=== PATIENT | male | born 1995 | race Caucasian/White ===

== ENCOUNTER 2016-06-09 17:54 | Emergency (ER) | payer SELFPAY ==
[~2016-06-09] VITALS: Ht 172.7 cm; Wt 95.5 kg
[2016-06-09 18:03] VITALS: TEMP 97.5
[2016-06-09 20:04] VITALS: BP 145/87; PULSE 80
== END 2016-06-09 20:06 | disposition home or self-care (01) ==
LOC: COL.ER 17:54
DX: S02.2XXA Fracture of nasal bones, initial encounter for closed fracture (principal); W21.03XA Struck by baseball, initial encounter; Y93.64 Activity, baseball; Y92.830 Public park as the place of occurrence of the external cause